=== PATIENT | male | born 1985 | race Caucasian/White ===

== ENCOUNTER 2016-12-21 16:28 | Outpatient (CLI) | payer OTHER | END 2016-12-21 16:29 | disposition critical access hospital (66) | DX: M25.562 Pain in left knee (principal); V28.4XXA Motorcycle driver injured in noncollision transport accident in traffic accident, initial encounter; Y92.89 Other specified places as the place of occurrence of the external cause | CPT/HCPCS: A0425; A0429 ==

== ENCOUNTER 2016-12-21 16:40 | Emergency (ER) | payer OTHER ==
[2016-12-21] MEDS ORDERED: IBUPROFEN 800 MG TABLET PO STA (16:42)
[2016-12-21] MEDS ORDERED: IBUPROFEN 800 MG TABLET PO ONE (16:43)
== END 2016-12-21 17:52 | disposition home or self-care (01) ==
DX: S80.212A Abrasion, left knee, initial encounter (principal); S80.02XA Contusion of left knee, initial encounter; V28.0XXA Motorcycle driver injured in noncollision transport accident in nontraffic accident, initial encounter; R03.0 Elevated blood-pressure reading, without diagnosis of hypertension; M79.A21 Nontraumatic compartment syndrome of right lower extremity; Z79.82 Long term (current) use of aspirin
CPT/HCPCS: 73564; 99283; A9270